=== PATIENT | male | born 1995 | race Caucasian/White ===

== ENCOUNTER 2017-05-23 02:37 | Inpatient (IN) | payer SELFPAY ==
[~2017-05-23] VITALS: Ht 175.3 cm; Wt 91.6 kg
[2017-05-23] MEDS ORDERED: CITA20TA9 PO (02:49)
[2017-05-23] MEDS ORDERED: LORazepam 2 MG/ML VIAL ONE (03:42)
[2017-05-23] MEDS ORDERED: DiphenhydrAMINE HCL 50 MG/ML VIAL ONE (03:42)
[2017-05-23] MEDS ORDERED: HALOPERIDOL LACTATE 5 MG/ML VIAL ONE (03:42)
[2017-05-23] MEDS ORDERED: HALOPERIDOL LACTATE 5 MG/ML VIAL IM ONE ×2 (03:45→10:30)
[2017-05-23] MEDS ORDERED: LORazepam 2 MG/ML VIAL IM ONE ×2 (03:45→10:30)
[2017-05-23] MEDS ORDERED: DiphenhydrAMINE HCL 50 MG/ML VIAL IM ONE ×2 (03:45→10:30)
[2017-05-23 04:24] LABS: BASOPHILS % (AUTO) 0.4 % (0.0-2.0); EOSINOPHILS % (AUTO) 0.8 % (1.0-6.0); HEMATOCRIT 42.8 % (41-53); HEMOGLOBIN 14.3 g/dL (13.5-17.5); LYMPHOCYTES # (AUTO) 2.5 K/uL (1.0-4.8); LYMPHOCYTES % (AUTO) 22.1 % (22.0-44.0); MEAN CORPUSCULAR HEMOGLOBIN 28.5 pg (26.0-34.0); MEAN CORPUSCULAR HGB CONC 33.4 G/dL (31.0-37.0); MEAN CORPUSCULAR VOLUME 85 fL (80-100); MONOCYTES # (AUTO) 0.6 K/uL (0.1-1.0); MONOCYTES % (AUTO) 5.5 % (2.0-9.0); NEUTROPHILS # (AUTO) 8.1 K/uL (1.8-7.7); NEUTROPHILS % (AUTO) 71.2 % (40.0-70.0); PLATELET COUNT (AUTO) 203 K/uL (150-450); RED BLOOD CELL COUNT(AUTO) 5.02 MIL/uL (4.50-5.90); RED CELL DISTRIBUTION WIDTH 13.4 % (11.5-14.5); WHITE BLOOD COUNT (AUTO) 11.3 K/uL (4.5-11.0)
[2017-05-23 04:29] LABS: ANION GAP 28 mmol/L (8-16); CALCIUM, TOTAL 8.8 mg/dL (8.8-10.5); CARBON DIOXIDE 13 mmol/L (22-29); CHLORIDE 99 mmol/L (98-107); GLOMERULAR FILTR. RATE CALC 60 mL/min (>60); POTASSIUM 3.3 mmol/L (3.5-5.1); SODIUM SERUM 140 mmol/L (136-145); UREA NITROGEN, BLOOD 12 mg/dL (7-18)
[2017-05-23 04:35] LABS: ALANINE AMINOTRANSFERASE 41 U/L (12-78); ALBUMIN 4.4 g/dL (3.4-5.0); ASPARTATE AMINOTRANSFERASE 27 U/L (15-37); BILIRUBIN,TOTAL 0.3 mg/dL (0.1-1.0); CHOL/HDL RATIO 2.5 (4.2-7.3); TOTAL PROTEIN, SERUM 8.3 g/dL (6.4-8.2)
[2017-05-23 12:55] VITALS: BP 120/75
[2017-05-23 13:03] VITALS: BP 120/75
[2017-05-23] MEDS ORDERED: POTASSIUM CHLORIDE 20 MEQ ER TABLET PO ONE (14:15)
[2017-05-23 16:00] VITALS: BP 130/70
[2017-05-23] MEDS: BACITRACIN 28.4 GM OINTMENT TP SCH (17:03)
[2017-05-23] MEDS: ZOLPIDEM TARTRATE 10 MG TABLET PO PRN (21:16)
[2017-05-24 05:04] VITALS: BP 127/76
[2017-05-24 08:40] LABS: CHOL/HDL RATIO 2.8 (4.2-7.3); POTASSIUM 3.5 mmol/L (3.5-5.1)
[2017-05-24 08:42] VITALS: BP 134/89
[2017-05-24] MEDS: BACITRACIN 28.4 GM OINTMENT TP SCH ×2 (09:27→16:58)
[2017-05-24] MEDS: HALOPERIDOL 5 MG TABLET PO PRN (09:27)
[2017-05-24] MEDS: LORazepam 2 MG TABLET PO PRN (09:27)
[2017-05-24] MEDS: RisperiDONE 3 MG TABLET PO SCH ×2 (10:26→16:57)
[2017-05-24] MEDS: DIVALPROEX SODIUM 500 MG DR TABLET PO SCH ×2 (10:26→16:57)
[2017-05-24] MEDS: BENZTROPINE MESYLATE 1 MG TABLET PO SCH ×2 (10:26→16:57)
[2017-05-24 17:01] VITALS: BP 137/88
[2017-05-24] MEDS ORDERED: DOCUSATE SODIUM 100 MG CAPSULE PO PRN (18:30)
[2017-05-24] MEDS: ZOLPIDEM TARTRATE 10 MG TABLET PO PRN (21:03)
[2017-05-25 01:47] VITALS: BP 134/95
[2017-05-25 08:10] VITALS: BP 126/78
[2017-05-25] MEDS: BACITRACIN 28.4 GM OINTMENT TP SCH ×2 (09:16→16:48)
[2017-05-25] MEDS: RisperiDONE 3 MG TABLET PO SCH ×2 (09:17→16:46)
[2017-05-25] MEDS: LORazepam 2 MG TABLET PO PRN ×2 (09:17→13:18)
[2017-05-25] MEDS: BENZTROPINE MESYLATE 1 MG TABLET PO SCH ×2 (09:17→16:46)
[2017-05-25] MEDS: DIVALPROEX SODIUM 500 MG DR TABLET PO SCH ×2 (09:17→16:47)
[2017-05-25] MEDS: HALOPERIDOL 5 MG TABLET PO PRN (13:17)
[2017-05-25 16:01] VITALS: BP 108/63
[2017-05-25] MEDS ORDERED: IBUPROFEN 400 MG TABLET PO PRN (19:45)
[2017-05-25] MEDS ORDERED: ACETAMINOPHEN 325 MG TABLET PO PRN (19:45)
[2017-05-25] MEDS: ZOLPIDEM TARTRATE 10 MG TABLET PO PRN (21:23)
[2017-05-26 06:07] VITALS: BP 115/83
[2017-05-26 08:41] VITALS: BP 131/69
[2017-05-26] MEDS: DIVALPROEX SODIUM 500 MG DR TABLET PO SCH ×2 (09:26→16:33)
[2017-05-26] MEDS: BENZTROPINE MESYLATE 1 MG TABLET PO SCH ×2 (09:26→16:33)
[2017-05-26] MEDS: RisperiDONE 3 MG TABLET PO SCH ×2 (09:26→16:33)
[2017-05-26] MEDS: LORazepam 2 MG TABLET PO PRN (09:26)
[2017-05-26] MEDS: BACITRACIN 28.4 GM OINTMENT TP SCH ×2 (09:27→16:33)
[2017-05-26 16:00] VITALS: BP 120/77
[2017-05-27 01:24] VITALS: BP 130/83
[2017-05-27] MEDS: DIVALPROEX SODIUM 500 MG DR TABLET PO SCH (08:21)
[2017-05-27] MEDS: BENZTROPINE MESYLATE 1 MG TABLET PO SCH (08:21)
[2017-05-27] MEDS: RisperiDONE 3 MG TABLET PO SCH (08:21)
[2017-05-27] MEDS: LORazepam 2 MG TABLET PO PRN (08:21)
[2017-05-27] MEDS: BACITRACIN 28.4 GM OINTMENT TP SCH (08:22)
[2017-05-27 08:23] VITALS: BP 120/66
[2017-05-27] MEDS ORDERED: DIVA500T35 PO (13:07)
[2017-05-27] MEDS ORDERED: BENZ1TAB10 PO (13:07)
[2017-05-27] MEDS ORDERED: RISP3 PO (13:07)
== END 2017-05-27 14:52 | disposition home or self-care (01) | DRG 885 ==
LOC: EMS 02:38 → B3A 12:02 → EMS 12:25
PROVIDERS: ADMIT Psychiatry & Neurology Psychiatry; ATTEND Psychiatry & Neurology Psychiatry
DX: F25.9 Schizoaffective disorder, unspecified (principal); D72.829 Elevated white blood cell count, unspecified; F41.9 Anxiety disorder, unspecified; E87.6 Hypokalemia; Z79.899 Other long term (current) drug therapy; Z78.1 Physical restraint status
CPT/HCPCS: 84132; 96372; 99285; G0480; J1200; J1630; J2060

== ENCOUNTER 2023-09-10 18:19 | Inpatient (IN) | payer MEDICAID ==
[~2023-09-10] VITALS: Ht 172.7 cm; Wt 119.3 kg
[~2023-09-10 18:19] MED LIST: BENZ1TAB84 PO; DIVA-112 PO; RISP3TAB35 PO
[2023-09-10 19:18] LABS: BASOPHILS % (AUTO) 0.9 % (0.0-2.0); EOSINOPHILS % (AUTO) 0.9 % (1.0-6.0); HEMATOCRIT 41.5 % (41-53); HEMOGLOBIN 13.7 g/dL (13.5-17.5); LYMPHOCYTES # (AUTO) 3.9 K/uL (1.0-4.8); LYMPHOCYTES % (AUTO) 30.6 % (22.0-44.0); MEAN CORPUSCULAR HEMOGLOBIN 27.2 pg (26.0-34.0); MEAN CORPUSCULAR HGB CONC 32.9 G/dL (31.0-37.0); MEAN CORPUSCULAR VOLUME 83 fL (80-100); MONOCYTES # (AUTO) 0.9 K/uL (0.1-1.0); MONOCYTES % (AUTO) 7.1 % (2.0-9.0); NEUTROPHILS # (AUTO) 7.6 K/uL (1.8-7.7); NEUTROPHILS % (AUTO) 60.5 % (40.0-70.0); PLATELET COUNT (AUTO) 235 K/uL (150-450); RED BLOOD CELL COUNT(AUTO) 5.03 MIL/uL (4.50-5.90); RED CELL DISTRIBUTION WIDTH 14.7 % (11.5-14.5); WHITE BLOOD COUNT (AUTO) 12.6 K/uL (4.5-11.0)
[2023-09-10 19:28] LABS: ANION GAP 8 mmol/L (8-16); CALCIUM, TOTAL 8.9 mg/dL (8.8-10.5); CARBON DIOXIDE 26 mmol/L (22-29); CHLORIDE 103 mmol/L (98-107); CREATININE 0.75 mg/dL (0.60-1.30); GLOMERULAR FILTR. RATE CALC > 60 mL/min (>60); GLUCOSE,RANDOM 108 mg/dL (70-110); POTASSIUM 3.7 mmol/L (3.5-5.1); SODIUM SERUM 137 mmol/L (136-145); UREA NITROGEN, BLOOD 8 mg/dL (7-18)
[2023-09-10 19:34] LABS: ALANINE AMINOTRANSFERASE 82 U/L (12-78); ALBUMIN 3.6 g/dL (3.4-5.0); ALKALINE PHOSPHATASE 142 U/L (46-116); ASPARTATE AMINOTRANSFERASE 36 U/L (15-37); BILIRUBIN,TOTAL 0.2 mg/dL (0.1-1.0); TOTAL PROTEIN, SERUM 7.8 g/dL (6.4-8.2); VALPROIC ACID 43 mcg/mL (50-100)
[2023-09-10 19:57] LABS: ALCOHOL, BLOOD (SERUM) < 3 mg/dL (0-10)
[2023-09-10 21:03] LABS: COVID AG,FIA SOURCE NASOPHARYNGEAL
[2023-09-10 21:20] LABS: SARS-COV2 (COVID) ANTIGEN,FIA Negative (Negative)
[2023-09-10] MEDS ORDERED: DiphenhydrAMINE HCL 25 MG CAPSULE PO ONE (22:15)
[2023-09-10] MEDS ORDERED: LORazepam 2 MG TABLET PO ONE (22:15)
[2023-09-10] MEDS ORDERED: DIVALPROEX SODIUM 500 MG ER TABLET PO ONE (22:15)
[2023-09-10] MEDS ORDERED: RisperiDONE 1 MG TABLET PO ONE (22:45)
[2023-09-10] MEDS ORDERED: HALOPERIDOL 5 MG TABLET PO PRN (23:15)
[2023-09-10] MEDS ORDERED: ZOLPIDEM TARTRATE 10 MG TABLET PO PRN (23:15)
[2023-09-11 00:46] LABS: PH,URINE DRUG SCREEN 6.5 (5.0-8.0)
[2023-09-11 00:48] LABS: APPEARANCE,URINE HAZY (CLEAR); BILIRUBIN,URINE NEGATIVE (NEGATIVE); COLOR,URINE YELLOW (YELLOW); GLUCOSE, URINE (UA) NEGATIVE (NEGATIVE); KETONES,URINE NEGATIVE (NEGATIVE); LEUKOCYTE ESTERASE ,URINE NEGATIVE (NEGATIVE); NITRATE,URINE NEGATIVE (NEGATIVE); OCCULT BLOOD,URINE SMALL (NEGATIVE); PH,URINE 6.5 (5.0-8.0); PROTEIN,URINE 30-70 mg/dL (NEGATIVE); SPECIFIC GRAVITIY, URINE 1.028 (1.003-1.030); UROBILINOGEN,URINE <=1.0 mg/dL (<=1.0)
[2023-09-11 00:53] LABS: ALCOHOL, URINE DRUG SCREEN NEGATIVE (NEGATIVE); AMPHET/METH SCREEN,URINE NEGATIVE (NEGATIVE); BARBITURATE SCREEN, URINE NEGATIVE (NEGATIVE); BENZODIAZEPINES SCREEN,URINE NEGATIVE (NEGATIVE); CANNABINOID SCREEN,URINE NEGATIVE (NEGATIVE); COCAINE SCREEN,URINE NEGATIVE (NEGATIVE); METHADONE SCREEN, URINE NEGATIVE (NEGATIVE); OPIATE SCREEN,URINE NEGATIVE (NEGATIVE); PHENCYCLIDINE SCREEN,URINE NEGATIVE (NEGATIVE)
[2023-09-11 00:54] LABS: AMORPHOUS SEDIMENT,UR Few /LPF (None Seen); BACTERIA,URINE Few /HPF (None Seen); RBC,URINE 0-2 /HPF (0-2); SQUAMOUS EPITHELIAL CELL,UR Few /LPF (None Seen); WBC,URINE None Seen /HPF (0-5)
[2023-09-11 09:11] VITALS: BP 108/145; PULSE 108; RESP 18; TEMP 97.7; O2SAT 96
[2023-09-11] MEDS ORDERED: INFLUENZA VIRUS VACCINE QVS 2023-24 (6MO+)/PF 60 MCG/0.5 ML SYRINGE IM. ONE (11:45)
[2023-09-11] MEDS ORDERED: MAG HYDROX/AL HYDROX/SIMETH ES 30 ML SUSPENSION UDCUP PO PRN (14:45)
[2023-09-11] MEDS ORDERED: ALBUTEROL SULFATE HFA 90 MCG/PUFF 8 GM INHALER IH PRN (14:45)
[2023-09-11] MEDS ORDERED: BENZOCAINE/MENTHOL LOZENGE PO PRN (14:45)
[2023-09-11] MEDS ORDERED: MAGNESIUM HYDROXIDE SUSPENSION 30 ML UDCUP PO PRN (14:45)
[2023-09-11] MEDS ORDERED: BACITRACIN 28 GM OINTMENT TP PRN (14:45)
[2023-09-11] MEDS ORDERED: ACETAMINOPHEN 325 MG TABLET PO PRN (14:45)
[2023-09-11] MEDS ORDERED: ONDANSETRON HCL 4 MG TABLET PO PRN (14:45)
[2023-09-11] MEDS ORDERED: DOCUSATE SODIUM 100 MG CAPSULE PO PRN (14:45)
[2023-09-11] MEDS ORDERED: PETROLATUM,WHITE 28 GM JELLY TP PRN (14:45)
[2023-09-11] MEDS ORDERED: CloNIDine HCL 0.1 MG TABLET PO PRN (14:45)
[2023-09-11] MEDS ORDERED: IBUPROFEN 600 MG TABLET PO PRN (14:45)
[2023-09-11] MEDS ORDERED: OMEPRAZOLE 20 MG CAPSULE PO PRN (14:45)
[2023-09-11] MEDS ORDERED: LOPERAMIDE HCL 2 MG CAPSULE PO PRN (14:45)
[2023-09-11 23:30] VITALS: BP 134/85; PULSE 86; RESP 18; TEMP 97.8
[2023-09-12 08:44] VITALS: BP 132/84; PULSE 103; RESP 18; TEMP 98.2; O2SAT 98
[2023-09-12 16:47] VITALS: BP 158/83; PULSE 120; RESP 19; O2SAT 97
[2023-09-12] MEDS: BENZTROPINE MESYLATE 1 MG TABLET PO SCH (16:47)
[2023-09-12] MEDS: DIVALPROEX SODIUM 500 MG DR TABLET PO SCH (16:47)
[2023-09-12] MEDS: LORazepam 2 MG TABLET PO PRN (16:47)
[2023-09-12] MEDS: RisperiDONE 3 MG TABLET PO SCH (16:47)
[2023-09-12 20:30] VITALS: BP_SYST 110; BP_SYST 129; BP_DIAS 68; BP_DIAS 83; PULSE 100; PULSE 98; RESP 17; RESP 18; TEMP 97.6; TEMP 98; O2SAT 97
[2023-09-13] MEDS: BENZTROPINE MESYLATE 1 MG TABLET PO SCH ×2 (08:25→16:54)
[2023-09-13] MEDS: DIVALPROEX SODIUM 500 MG DR TABLET PO SCH ×2 (08:25→16:53)
[2023-09-13] MEDS: RisperiDONE 3 MG TABLET PO SCH ×2 (08:25→16:54)
[2023-09-13 09:08] VITALS: BP 128/83; PULSE 98; RESP 17; TEMP 97.5; O2SAT 98
[2023-09-13] MEDS: LORazepam 2 MG TABLET PO PRN (16:54)
[2023-09-13 20:36] VITALS: BP 130/84; PULSE 103; RESP 18; TEMP 97.7; O2SAT 98
[2023-09-14 08:16] VITALS: BP 122/75; PULSE 99; RESP 18; TEMP 97.7; O2SAT 98
[2023-09-14] MEDS: BENZTROPINE MESYLATE 1 MG TABLET PO SCH ×2 (09:18→16:48)
[2023-09-14] MEDS: DIVALPROEX SODIUM 500 MG DR TABLET PO SCH ×2 (09:18→16:48)
[2023-09-14] MEDS: RisperiDONE 3 MG TABLET PO SCH ×2 (09:18→16:48)
[2023-09-14 22:14] VITALS: BP 126/73; PULSE 97; RESP 18; TEMP 97.4; O2SAT 99
[2023-09-15] MEDS: RisperiDONE 3 MG TABLET PO SCH ×2 (08:50→16:11)
[2023-09-15] MEDS: BENZTROPINE MESYLATE 1 MG TABLET PO SCH ×2 (08:50→16:11)
[2023-09-15] MEDS: DIVALPROEX SODIUM 500 MG DR TABLET PO SCH ×2 (08:50→16:11)
[2023-09-15 09:44] VITALS: BP 123/73; PULSE 108; RESP 18; TEMP 98.3; O2SAT 96
[2023-09-15] MEDS: LORazepam 2 MG TABLET PO PRN (17:46)
[2023-09-15 20:40] VITALS: BP 117/82; PULSE 89; RESP 18; TEMP 97.6; O2SAT 97
[2023-09-16 08:24] VITALS: BP 137/79; PULSE 97; RESP 17; TEMP 97.8; O2SAT 97
[2023-09-16] MEDS: DIVALPROEX SODIUM 500 MG DR TABLET PO SCH ×2 (09:12→16:15)
[2023-09-16] MEDS: BENZTROPINE MESYLATE 1 MG TABLET PO SCH ×2 (09:12→16:15)
[2023-09-16] MEDS: RisperiDONE 3 MG TABLET PO SCH ×2 (09:12→16:15)
== END 2023-09-16 18:29 | disposition home or self-care (01) | DRG 750 ==
LOC: EMS 18:20 → B2S 09-11 02:23
PROVIDERS: ADMIT Psychiatry & Neurology Psychiatry; ATTEND Psychiatry & Neurology Psychiatry
DX: F20.0 Paranoid schizophrenia (principal); F31.9 Bipolar disorder, unspecified; F41.9 Anxiety disorder, unspecified; Z20.822 Contact with and (suspected) exposure to COVID-19; G47.00 Insomnia, unspecified; K59.00 Constipation, unspecified
CPT/HCPCS: 80053; 80164; 80307; 81001; 85025; 99285; G0480